=== PATIENT | male | born 1980 | race African-American/Black ===

== ENCOUNTER 2017-08-10 18:52 | Emergency (ER) | payer OTHER, SELFPAY ==
[2017-08-10] MEDS ORDERED: Sodium Chloride 0.9% 1,000 ML IV ONE (19:16)
[2017-08-10] MEDS ORDERED: Ondansetron 4 MG/2 ML SDV IVPUSH ONE (19:16)
[2017-08-10] MEDS ORDERED: Sodium Chloride 0.9% 10 ML Syringe FLUSH PRN (19:16)
[2017-08-10] MEDS ORDERED: Morphine 2 MG/ML Syringe IVPUSH ONE (19:16)
[2017-08-10] MEDS ORDERED: Sodium Chloride 0.9% 2.5 ML Syringe FLUSH PRN (19:16)
[2017-08-10] MEDS ORDERED: Pantoprazole 40 MG Vial IVPUSH ONE (19:16)
--- NOTE | 2017-08-10 19:22 | EDM.PDOC ---
ED HPI GENERAL MEDICAL PROBLEM - General Chief Complaint: Abdominal Pain Stated Complaint: PT HAS STOMACH PAINS Time Seen by Provider: 08/10/17 19:08 - History of Present Illness INITIAL COMMENTS - FREE TEXT/NARRATIVE: HISTORY AND PHYSICAL: History of present illness: The patient is a 37 y/o male who has no significant GI history other than the constipation, for which he has a bowel movement once a week and is normal for him, and presents with complaints of mid abdominal pain and vomiting for the last 3 days. He denies any contacts and has had no fever or upper respiratory symptoms chest pain or shortness of breath. He has no urinary complaints no complaints no flank pain. He says that the pain is at the middle of his abdomen as well as his epigastric area and he has not kept anything down by mouth more than a few sips over the last 3 days. The patient describes the pain as " feeling like a piece of my bowel is moving wrong or twisting". He has tried over -the-counter Pepto-Bismol and [place] without. He has no history of food intolerance but does have a history of lactose intolerance so he avoids those types of foods. He admits he drinks a lot of caffeinated products and doesn't hydrate November. Review of systems: As per history of present illness and below otherwise all systems reviewed and negative. Past medical history: As per history of present illness and as reviewed below otherwise noncontributory. Surgical history: As per history of present illness and as reviewed below otherwise noncontributory. Social history: No reported history of drug or alcohol abuse. Family history: As per history of present illness and as reviewed below otherwise noncontributory. Physical exam: Gen.: Well-developed overweight male who is nontoxic and vital signs of an reviewed by me. He is nontoxic appearing HEENT: Atraumatic, normocephalic, pupils reactive, negative for conjunctival pallor or scleral icterus, mucous membranes tacky, throat clear, neck supple, nontender, trachea midline. Lungs: Clear to auscultation, breath sounds equal bilaterally, chest nontender. Heart: S1S2, regular rate and rhythm no overt murmurs Abdomen: Soft, nondistended, hypoactive bowel sounds. There is tympany on percussion in the upper abdomen and there is tenderness mid abdomen and epigastrium without rebound or guarding. The right lower and left lower quadrants are without tenderness. Negative for masses or hepatosplenomegaly. Pelvis: Stable nontender. Genitourinary: Deferred. Rectal: Deferred. Extremities: Atraumatic, negative for cords or calf pain. Neurovascular unremarkable. Neuro: Awake, alert, oriented. Cranial nerves II through XII unremarkable. Cerebellum unremarkable. Motor and sensory unremarkable throughout. Exam nonfocal. Diagnostics: CBC CMP amylase lipase UA CT scan of the abdomen and pelvis Therapeutics: IV fluids and Protonix Zofran and morphine Dilaudid GI cocktail 2134: Case was discussed with our surgeon on-call who wants to see this patient tomorrow morning in his clinic as he wants to organize next dated endoscopy and colonoscopy. I talked to the patient and at bedside about all testing results. He informs me that he drinks a lot of Mountain Dew and sweet tea which I told him to reduce significantly. I've also given him dietary restrictions and will give him Prevacid to start at home tomorrow. He will be advised to call the clinic tomorrow at 8:[address] Street's Nurse when he would be coming and he will be seen anytime between 9 AM and 12 noon. I've advised him on reasons to return to the ER. I will also give him Zofran and tramadol for home. The patient has not had any vomiting while he's been here Impression: Abdominal pain with vomiting, likely peptic ulcer disease and chronic constipation Definitive disposition and diagnosis as appropriate pending reevaluation and review of above. abdomen Pain Score (Numeric/FACES): 10 - Related Data Allergies Allergy/AdvReac Type Severity Reaction Status Date / Time No Known Allergies Allergy Verified 08/10/17 18:56 Home Meds: Home Meds . [No Known Home Meds] 10/26/14 [History] Past Medical History - Past Health History Medical/Surgical History: Denies Medical/Surgical History - Past Surgical History HEENT Surgical History: Reports: Adenoidectomy, Myringotomy w Tube(s) Social & Family History - Family History Family Medical History: Noncontributory - Tobacco Use Smoking Status *Q: Current Every Day Smoker Years of Tobacco use: 20 Packs/Tins Daily: 1 - Recreational Drug Use Recreational Drug Use: No ED ROS GENERAL - Review of Systems Review Of Systems: ROS reveals no pertinent complaints other than HPI. ED EXAM, GENERAL - Physical Exam Exam: See Below (See dictation) Course - Vital Signs Last Recorded V/S: Last Vital Signs Temp 36.9 C 08/10/17 18:52 Pulse 75 08/10/17 18:52 Resp 18 08/10/17 18:52 BP 126/83 08/10/17 18:52 Pulse Ox 99 08/10/17 18:52 - Orders/Labs/Meds Orders: Active Orders 24 hr Category Date Time Status Abdomen Pelvis w Cont [CT] Stat Exams 08/10/17 19:15 Taken GI Cocktail with Reglan 25 ML PO x 1 Med 08/10/17 21:39 Ordered Alum Hydrox/Mag Hydrox/Simeth [Mag-Al Plus] 15 ml Metoclopramide [Reglan] 5 mg Lidocaine 2% [Xylocaine 2% Viscous] 5 ml PO ONETIME Sodium Chloride 0.9% [Saline Flush] Med 08/10/17 19:16 Active 10 ml FLUSH ASDIRECTED PRN Sodium Chloride 0.9% [Saline Flush] Med 08/10/17 19:16 Active 2.5 ml FLUSH ASDIRECTED PRN Saline Lock Insert [OM.PC] Stat Oth 08/10/17 19:15 Ordered Medication Orders Al Hydroxide/Mg Hydroxide 15 ml/ Metoclopramide HCl 5 mg/Lidocaine HCl 5 ml 0 ml PO ONETIME ONE Stop: 08/10/17 21:40 Sodium Chloride (Saline Flush) 10 ml FLUSH ASDIRECTED PRN PRN Reason: Keep Vein Open Sodium Chloride (Saline Flush) 2.5 ml FLUSH ASDIRECTED PRN PRN Reason: Keep Vein Open Labs: Laboratory Tests 08/10/17 08/10/17 08/10/17 Range/Units 19:20 19:20 19:30 WBC 9.32 (4.0-11.0) K/uL RBC 4.68 (4.50-5.90) M/uL Hgb 14.2 (13.0-17.0) g/dL Hct 42.4 (38.0-50.0) % MCV 90.6 (80.0-98.0) fL MCH 30.3 (27.0-32.0) pg MCHC 33.5 (31.0-37.0) g/dL RDW Std Deviation 41.8 (28.0-62.0) fl RDW Coeff of Jovi 13 (11.0-15.0) % Plt Count 380 (150-400) K/uL MPV 9.30 (7.40-12.00) fL Neut % (Auto) 61.8 (48.0-80.0) % Lymph % (Auto) 28.6 (16.0-40.0) % [place] % (Auto) 7.6 (0.0-15.0) % Eos % (Auto) 1.8 (0.0-7.0) % Baso % (Auto) 0.2 (0.0-1.5) % Neut # (Auto) 5.8 H (1.4-5.7) K/uL Lymph # (Auto) 2.7 H (0.6-2.4) K/uL [place] # (Auto) 0.7 (0.0-0.8) K/uL Eos # (Auto) 0.2 (0.0-0.7) K/uL Baso # (Auto) 0.0 (0.0-0.1) K/uL Nucleated RBC % 0.0 /100WBC Nucleated RBCs # 0 K/uL Sodium 141 (136-146) mmol/L Potassium 3.7 (3.5-5.1) mmol/L Chloride 103 (98-110) mmol/L Carbon Dioxide 27 (21-31) mmol/L BUN 17 (6.0-23.0) mg/dL Creatinine 1.4 (0.6-1.5) mg/dL Est Cr Clr Drug Dosing 84.81 mL/min Estimated GFR (MDRD) > 60.0 ml/min Glucose 101 (60-110) mg/dL Calcium 9.6 (8.8-10.8) mg/dL Total Bilirubin 0.5 (0.1-1.5) mg/dL AST 18 (5-40) IU/L ALT 19 (8-54) IU/L Alkaline Phosphatase 80 (40-150) Total Protein 8.1 H (6.0-8.0) g/dL Albumin 4.5 (3.5-5.0) g/dL Globulin 3.6 H (2.0-3.5) g/dL Albumin/Globulin Ratio 1.3 (1.3-2.8) Amylase 77 (10-90) U/L Lipase 17 (7-80) U/L Urine Color YELLOW Urine Appearance CLEAR Urine pH 7.5 (5.0-8.0) Ur Specific [place] 1.015 (1.001-1.035) Urine Protein TRACE (NEGATIVE) mg/dL Urine Glucose (UA) NEGATIVE (NEGATIVE) mg/dL Urine Ketones NEGATIVE (NEGATIVE) mg/dL Urine Occult Blood NEGATIVE (NEGATIVE) Urine Nitrite NEGATIVE (NEGATIVE) Urine Bilirubin SMALL H (NEGATIVE) Urine Ictotest NEGATIVE Urine Urobilinogen 4.0 H (<2.0) EU/dL Ur Leukocyte Esterase NEGATIVE (NEGATIVE) Urine RBC 0-2 (0-2/HPF) Urine WBC 1-3 (0-5/HPF) Ur Epithelial Cells FEW (NONE-FEW) Urine Bacteria FEW (NEGATIVE) Urine Mucus LIGHT (NONE-MOD) Meds: Medications Generic Name Dose Route Start Last Admin Trade Name Freq PRN Reason Stop Dose Admin Al Hydroxide/Mg Hydroxide 15 0 ml 08/10/17 21:39 ml/ Metoclopramide HCl 5 mg/ PO 08/10/17 21:40 Lidocaine HCl 5 ml ONETIME ONE Sodium Chloride 10 ml 08/10/17 19:16 Saline Flush FLUSH ASDIRECTED PRN Keep Vein Open Sodium Chloride 2.5 ml 08/10/17 19:16 Saline Flush FLUSH ASDIRECTED PRN Keep Vein Open Discontinued Medications Generic Name Dose Route Start Last Admin Trade Name Freq PRN Reason Stop Dose Admin Hydromorphone HCl 1 mg 08/10/17 21:31 Dilaudid IVPUSH 08/10/17 21:32 ONETIME ONE Sodium Chloride 1,000 mls @ 999 mls/hr 08/10/17 19:16 08/10/17 19:43 Normal Saline IV 08/10/17 20:16 999 mls/hr STAT ONE Administration Sodium Chloride Confirm 08/10/17 19:25 08/10/17 19:36 Normal Saline Administered 08/10/17 19:26 20 ml Dose Administration 20 mls @ as directed .ROUTE .STK-MED ONE Morphine Sulfate 4 mg 08/10/17 19:16 08/10/17 19:36 Morphine IVPUSH 08/10/17 19:17 4 mg ONETIME ONE Administration Ondansetron HCl 4 mg 08/10/17 19:16 08/10/17 19:31 Zofran IVPUSH 08/10/17 19:17 4 mg ONETIME ONE Administration Pantoprazole Sodium 80 mg 08/10/17 19:16 08/10/17 19:40 Protonix Iv IVPUSH 08/10/17 19:17 80 mg .BOLUS ONE Administration Departure - Departure Time of Disposition: 21:41 Disposition: Home, Self-Care 01 Condition: Good Clinical Impression: Abdominal pain Qualifiers: Abdominal location: epigastric Qualified Code(s): R10.13 - Epigastric pain Vomiting Qualifiers: Vomiting type: unspecified Vomiting Intractability: non-intractable Nausea presence: with nausea Qualified Code(s): R11.2 - Nausea with vomiting, unspecified - Discharge Information Referrals: PCP,None [Primary Care Provider] - Forms: ED Department Discharge Additional Instructions: The following information is given to patients seen in the emergency department who are being discharged to home. This information is to outline your options for follow-up care. We provide all patients seen in our emergency department with a follow-up referral. The need for follow-up, as well as the timing and circumstances, are variable depending upon the specifics of your emergency department visit. If you don't have a primary care physician on staff, we will provide you with a referral. We always advise you to contact your personal physician following an emergency department visit to inform them of the circumstance of the visit and for follow-up with them and/or the need for any referrals to a consulting specialist. The emergency department will also refer you to a specialist when appropriate. This referral assures that you have the opportunity for followup care with a specialist. All of these measure are taken in an effort to provide you with optimal care, which includes your followup. Under all circumstances we always encourage you to contact your private physician who remains a resource for coordinating your care. When calling for followup care, please make the office aware that this follow-up is from your recent emergency room visit. If for any reason you are refused follow-up, please contact the [facility] emergency department at and ask to speak to the emergency department charge nurse. [facility] Primary care- Internal Medicine and Family [address] [address] [facility] Specialty Care-General Surgery Professional Building [address] [place] [address] [address] [place] [address] Please call the clinic tomorrow and ask to speak to the nurse for Dr. Street at 8: 30 AM to inform her when you'll be coming to see the doctor. Dr. Street has told you that you can come any time between 9 AM and 12 noon for evaluation. Please use medications as needed and prescribed from [facility], Zofran and tramadol, and fill your prescription for Prevacid tomorrow. Please try to reduce caffeine intake and watch her diet as we discussed and push hydration. Return to ER as needed and as discussed. - My Orders Last 24 Hours: My Active Orders 08/10/17 19:15 Abdomen Pelvis w Cont [CT] Stat Saline Lock Insert [OM.PC] Stat 08/10/17 19:16 Sodium Chloride 0.9% [Saline Flush] 10 ml FLUSH ASDIRECTED PRN Sodium Chloride 0.9% [Saline Flush] 2.5 ml FLUSH ASDIRECTED PRN 08/10/17 21:39 GI Cocktail with Reglan 25 ML PO x 1 Alum Hydrox/Mag Hydrox/Simeth [Mag-Al Plus ] 15 ml Metoclopramide [Reglan] 5 mg Lidocaine 2% [Xylocaine 2% Viscous] 5 ml PO ONETIME - Assessment/Plan Last 24 Hours: My Active Orders 08/10/17 19:15 Abdomen Pelvis w Cont [CT] Stat Saline Lock Insert [OM.PC] Stat 08/10/17 19:16 Sodium Chloride 0.9% [Saline Flush] 10 ml FLUSH ASDIRECTED PRN Sodium Chloride 0.9% [Saline Flush] 2.5 ml FLUSH ASDIRECTED PRN 08/10/17 21:39 GI Cocktail with Reglan 25 ML PO x 1 Alum Hydrox/Mag Hydrox/Simeth [Mag-Al Plus ] 15 ml Metoclopramide [Reglan] 5 mg Lidocaine 2% [Xylocaine 2% Viscous] 5 ml PO ONETIME
[2017-08-10] MEDS ORDERED: Sodium Chloride 0.9% 20 ML ONE (19:25)
[2017-08-10 19:57] LABS: CHLORIDE,CL 103 mmol/L (98-110); SODIUM,NA 141 mmol/L (136-146)
[2017-08-10] MEDS ORDERED: HYDROmorphone 2 MG/ML Syringe IVPUSH ONE (21:31)
[2017-08-10] MEDS ORDERED: Alum Hydrox/Mag Hydrox/Simeth 15 ML, Metoclopramide 5 MG, Lidocaine 2% 5 ML PO ONE ×3 (21:39)
[2017-08-10 21:46] VITALS: BP 94/46
[2017-08-10] MEDS ORDERED: Iopamidol 755 MG/ML 500 ML Multipack Bottle IVPUSH STA (23:09)
--- NOTE | 2017-08-11 14:10 | CT ---
EXAM DATE: 08/10/17 PATIENT'S AGE: 37 Patient: KALEY YLNCH Facility: [place], [place] Site . Site : 1980 Study: CT Abdomen/Pelvis [id number]/14/2017 8:57:19 PM Ordering Physician: Nemo Tenorio Final Report: INDICATION: Mid abdominal pain and vomiting x3 days TECHNIQUE: CT abdomen and pelvis acquired with IV contrast. 100 cc Isovue 370. COMPARISON: None FINDINGS: Lower chest: Unremarkable. Liver: Unremarkable. Spleen: Unremarkable. Pancreas: Unremarkable. Gallbladder and bile ducts: Unremarkable. Kidneys: 1.8 centimeter cyst mid zone right kidney. Adrenal glands: Unremarkable. GI tract: Thickening of the duodenum bulb and 2nd portion of the duodenum. Diffuse colonic fecal retention. Appendix is normal. Vascular structures: Unremarkable. Lymph nodes: Unremarkable. Miscellaneous: Unremarkable. No free air or significant free fluid. Pelvic Organs: Unremarkable. Bones: Unremarkable for age. IMPRESSION: Thickening of the duodenal bulb and 2nd portion the duodenum. Correlate with peptic ulcer disease clinically. Correlation with abnormal amylase/lipase to exclude pancreatitis involving the pancreatic head as a cause of adjacent bowel thickening may be helpful. Diffuse colonic fecal retention. Dictated by Jf Louis MD @ 08/10/2017 9:25:27 PM Dictated by: Jf Louis MD @ 08/10/2017 21:25:43 (Electronic Signature) Report Signed by Proxy. [facility]
== END 2017-08-10 22:20 | disposition home or self-care (01) ==
LOC: MW.ED 18:52
DX: K59.09 Other constipation (principal); F17.210 Nicotine dependence, cigarettes, uncomplicated
CPT/HCPCS: 36415; 74177; 80053; 81001; 82150; 83690; 85025; 96361; 96374; 96375; 99284; A9270; C9113; J1170; J2270; J2405; J7040; 99285

== ENCOUNTER 2017-09-02 12:01 | Day surgery (SDC) | payer OTHER, SELFPAY ==
[~2017-09-02 12:01] MED LIST: Lactated Ringers 1,000 ML IV SCH; Lidocaine 2% 5 ML SDV ONE; Propofol 200 MG/20 ML SDV ONE; fentaNYL 100 MCG/2 ML SDV ONE
--- NOTE | 2017-09-02 13:03 | PCM.PREANE ---
Preanesthetic Assessment - Anesthesia/Transfusion/Family Hx Anesthesia History: Prior Anesthesia Without Reaction Family History of Anesthesia Reaction: No Transfusion History: No Prior Transfusion(s) - Review of Systems General: No Symptoms Pulmonary: No Symptoms Cardiovascular: No Symptoms Neurological: No Symptoms Other: Reports: None - Physical Assessment NPO Status Date: 09/01/17 O2 Sat by Pulse Oximetry: 97 Respiratory Rate: 16 Vital Signs: Last Vital Signs Temp 36.0 C 09/02/17 12:36 Pulse 65 09/02/17 12:36 Resp 16 09/02/17 12:36 BP 116/66 09/02/17 12:36 Pulse Ox 97 09/02/17 12:36 Height: 1.91 m Weight: 118.841 kg ASA Class: 2 Mental Status: Alert & Oriented x3 Airway Class: Mallampati = 1 Dentition: Reports: [place](s) ROM/Head Extension: Full Lungs: Clear to Auscultation, Normal Respiratory Effort Cardiovascular: Regular Rate, Regular Rhythm - Allergies Allergies/Adverse Reactions: Allergies Allergy/AdvReac Type Severity Reaction Status Date / Time No Known Allergies Allergy Verified 08/10/17 18:56 - Anesthesia Plan Pre-Op Medication Ordered: None - Acknowledgements Anesthesia Type Planned: MAC Pt an Appropriate Candidate for the Planned Anesthesia: Yes Alternatives and Risks of Anesthesia Discussed w Pt/Guardian: Yes Pt/Guardian Understands and Agrees with Anesthesia Plan: Yes PreAnesthesia Questionnaire - Past Health History Medical/Surgical History: Denies Medical/Surgical History Cardiovascular History: Reports: Heart Murmur Endocrine/Metabolic History: Reports: Obesity/BMI 30+ - Past Surgical History Head Surgeries/Procedures: Reports: None HEENT Surgical History: Reports: Myringotomy w Tube(s) - SUBSTANCE USE Smoking Status *Q: Current Every Day Smoker Tobacco Use Within Last Twelve Months: Cigarettes Recreational Drug Use History: No - HOME MEDS Home Medications: Home Meds Ondansetron HCl [Zofran] 1 tab PO ASDIRECTED PRN 08/30/17 [History] traMADol HCl [Tramadol HCl] 1 tab PO ASDIRECTED PRN 08/30/17 [History] - CURRENT (IN HOUSE) MEDS Current Meds: Current Medications Lactated Ringer's (Ringers, Lactated) 1,000 mls @ 125 mls/hr IV ASDIRECTED PANCHO Last Admin: 09/02/17 12:43 Dose: 125 mls/hr Discontinued Medications Fentanyl (Sublimaze) Confirm Administered Dose 100 mcg .ROUTE .STK-MED ONE Stop: 09/02/17 10:30 Lidocaine (Xylocaine-Mpf 2%) Confirm Administered Dose 5 ml .ROUTE .STK-MED ONE Stop: 09/02/17 10:31 Propofol (Diprivan 20 Ml) Confirm Administered Dose 400 mg .ROUTE .STK-MED ONE Stop: 09/02/17 10:30
--- NOTE | 2017-09-02 13:47 | PCM.OPNOTE ---
- General Post-Op/Procedure Note Date of Surgery/Procedure: 09/02/17 Operative Procedure(s): egd w bx Findings: see dict [id number] Pre Op Diagnosis: hematemisis and abd pain Post-Op Diagnosis: esophageal ulcer Anesthesia Technique: Moderate Sedation Primary Surgeon: Hardeep Street Pathology: sent Complications: None Condition: Good
--- NOTE | 2017-09-02 14:08 | PCM.POSTAN ---
POST ANESTHESIA ASSESSMENT - MENTAL STATUS Mental Status: Alert, Oriented - RESPIRATORY Respiratory Status: Respiratory Rate WNL, Airway Patent, O2 Saturation Stable - CARDIOVASCULAR CV Status: Pulse Rate WNL, Blood Pressure Stable - GASTROINTESTINAL GI Status: No Symptoms - POST OP HYDRATION Hydration Status: Adequate & Stable
--- NOTE | 2017-09-02 14:08 | PCM48HPAN ---
Post Anesthesia Note - EVALUATION WITHIN 48HRS OF ANESTHETIC Vital Signs in Normal Range: Yes Patient Participated in Evaluation: Yes Respiratory Function Stable: Yes Airway Patent: Yes Cardiovascular Function Stable: Yes Hydration Status Stable: Yes Pain Control Satisfactory: Yes Nausea and Vomiting Control Satisfactory: Yes Mental Status Recovered: Yes
--- NOTE | 2017-09-02 14:37 | OR ---
SURGEON: Hardeep Street MD DATE OF PROCEDURE: 09/02/2017 PREOPERATIVE DIAGNOSIS: Hematemesis and abdominal pain. POSTOPERATIVE DIAGNOSIS: Esophageal ulcer. PROCEDURE PERFORMED: Esophagogastroduodenoscopy with biopsy. FINDINGS: The patient is easily sedated with [employer] and Diprivan. The patient is soundly snoring. Oropharynx and proximal esophagus are free of disease. No stricture or inflammation. Distal esophagus showing a flame-like salmon color change consistent with severe acid reflux and in one area with an area suggestive of healed ulcer or healing ulcer. There is no randal blood observed. Stomach rugae is normal in appearance. There is no blood, bile, ulcer, or fluid observed. Antrum was a little bit inflamed. Duodenum was grossly normal. Retroflexed look at the fundus of stomach, there was no hiatal hernia. Biopsy done at antrum, body, GE junction at 40, and sucked out the air while scope pulling out. PROCEDURE IN DETAIL: The patient was taken to the endoscopy room, and with the [employer]OM[employer]CTOR, Diprivan was administered. A well-lubricated EGD scope was gently inserted through the oropharynx, down the esophagus, passing through the gastroesophageal junction, into the stomach. The mucosa was examined upon the passage. Any etiology will be noted. Once in the stomach, we continued to advance to the distal antrum, passed through the pylorus into the second portion of the duodenum. Again, the mucosa was examined for any abnormality and etiology. The scope was then retrieved back to the stomach and then retroflexed to look at the fundus of the stomach. If a biopsy was indicated, we will biopsy the antrum, body, and gastroesophageal junction. The air will be sucked out while the scope is retrieved to reduce the patient's discomfort. The patient tolerated the procedure well. There were no intraoperative complications. Dr. Street was present through the whole procedure. Prior to surgery, a time-out had been called, the patient identified, procedure identified and antibiotic administered. ROSY / TERI /[id number]
[2017-09-02 15:28] VITALS: BP 119/78
== END 2017-09-02 14:15 | disposition home or self-care (01) ==
LOC: MW.SDS 12:01
PROVIDERS: ATTEND Surgery
DX: K29.50 Unspecified chronic gastritis without bleeding (principal); K20.9 Esophagitis, unspecified; F17.210 Nicotine dependence, cigarettes, uncomplicated
CPT/HCPCS: 43239; J3010; J7120; 00740; 88305; 88312; J2704

== ENCOUNTER 2018-02-26 20:52 | Emergency (ER) | payer OTHER ==
[2018-02-26] MEDS ORDERED: Famotidine 20 MG/2 ML SDV IVPUSH ONE (21:32)
[2018-02-26] MEDS ORDERED: Sodium Chloride 0.9% 1,000 ML IV ONE (21:32)
--- NOTE | 2018-02-26 22:02 | EDM.PDOC ---
ED HPI GENERAL MEDICAL PROBLEM - General Chief Complaint: General Stated Complaint: UNABLE TO BALANCE AND VOMITTING Time Seen by Provider: 02/26/18 22:01 Source of Information: Reports: Patient History Limitations: Reports: No Limitations - History of Present Illness INITIAL COMMENTS - FREE TEXT/NARRATIVE: HISTORY AND PHYSICAL: History of present illness: 37-year-old male presenting emergency department with chief complaint of upper epigastric plane starting last evening. Patient states that he was drinking heavily last evening and began to have epigastric pain. He denies any nausea or vomiting Arey denies any vomiting of red load. States he does have a history of gastric ulcers. He did have a scope done by Dr. Perez in August. Denies any right lower quadrant pain or right upper or right lower quadrant pain. Denies any bloody stool or dark tarry stools. Patient is a smoker. Currently denies any chest pain, palpitations, shortness breath, syncopal episodes, focal neurologic deficits. Review of systems: As per history of present illness and below otherwise all systems reviewed and negative. Past medical history: As per history of present illness and as reviewed below otherwise noncontributory. Surgical history: As per history of present illness and as reviewed below otherwise noncontributory. Social history: No reported history of drug or alcohol abuse. Family history: As per history of present illness and as reviewed below otherwise noncontributory. Physical exam: HEENT: Atraumatic, normocephalic, pupils reactive, negative for conjunctival pallor or scleral icterus, mucous membranes moist, throat clear, neck supple, nontender, trachea midline. Lungs: Clear to auscultation, breath sounds equal bilaterally, chest nontender. Heart: S1S2, regular, negative for clicks, rubs, or JVD. Abdomen: Soft, nondistended, epigastric tenderness on deep palpation. Negative for masses or hepatosplenomegaly. Negative for costovertebral tenderness. Pelvis: Stable nontender. Genitourinary: Deferred. Rectal: Deferred. Extremities: Atraumatic, negative for cords or calf pain. Neurovascular unremarkable. Neuro: Awake, alert, oriented. Cranial nerves II through XII unremarkable. Cerebellum unremarkable. Motor and sensory unremarkable throughout. Exam nonfocal. Diagnostics: CBC, CMP, amylase, lipase, H. pylori, CT abdomen and pelvis. Therapeutics: 1 L normal saline, famotidine 20 mg IV 1, GI cocktail 1 Impression: H. pylori gastritis Plan: CBC, CMP, amylase, lipase were all unremarkable. H. pylori was positive. He reports that he has not been treated for this in the past. CT the abdomen did show questionable wall thickening the rectum but patient has no symptoms of proctitis. There also was some mild wall thickening of the gastric antrum and duodenal bulb suggestive of inflammatory changes. There was an inadvertent finding of a small cyst within the right kidney. Patient was advised of these results and instructed to stop smoking as well as drinking as he has increased chance of having malignant type of changes occur. He needs to follow-up with his primary care physician as well as possibly repeat endoscopy. For his H. pylori gastritis we did prescribe any omeprazole 20 mg by mouth twice a day 14 days, clarithromycin 500 mg by mouth twice a day 14 days, Flagyl 500 mg by mouth twice a day 14 days. He is instructed to follow-up with his primary care provider and return to emergency department if he had any new or worsening symptoms. Abdominal Pain Score (Numeric/FACES): 10 - Related Data Allergies Allergy/AdvReac Type Severity Reaction Status Date / Time No Known Allergies Allergy Verified 08/10/17 18:56 Home Meds: Home Meds . [Unable to Verify Home Med List] 02/26/18 [History] Past Medical History - Past Health History Medical/Surgical History: Denies Medical/Surgical History Cardiovascular History: Reports: Heart Murmur Gastrointestinal History: Reports: Other (See Below) Other Gastrointestinal History: ulcer Endocrine/Metabolic History: Reports: Obesity/BMI 30+ - Infectious Disease History Infectious Disease History: Reports: Chicken Pox - Past Surgical History Head Surgeries/Procedures: Reports: None HEENT Surgical History: Reports: Myringotomy w Tube(s) GI Surgical History: Reports: EGD Social & Family History - Family History Family Medical History: Noncontributory - Tobacco Use Smoking Status *Q: Current Every Day Smoker Years of Tobacco use: 20 Packs/Tins Daily: 1 Used Tobacco, but Quit: No Month/Year Tobacco Last Used: t Second Hand Smoke Exposure: Yes - Caffeine Use Caffeine Use: Reports: Soda, Tea - Alcohol Use Days Per Week of Alcohol Use: 1 Number of Drinks Per Day: 1 Total Drinks Per Week: 1 Date of Last Drink: 02/25/18 - Recreational Drug Use Recreational Drug Use: No ED ROS GENERAL - Review of Systems Review Of Systems: See Below ED EXAM, GENERAL - Physical Exam Exam: See Below Course - Vital Signs Last Recorded V/S: Last Vital Signs Temp 97.6 F 02/26/18 21:32 Pulse 65 02/26/18 21:32 Resp 20 02/26/18 21:32 BP 136/85 02/26/18 21:32 Pulse Ox 98 02/26/18 21:32 - Orders/Labs/Meds Orders: Active Orders 24 hr Category Date Time Status Abdomen Pelvis w Cont [CT] Stat Exams 02/26/18 22:11 Taken Labs: Laboratory Tests 02/26/18 02/26/18 02/26/18 Range/Units 21:51 21:51 21:51 WBC 9.90 (4.0-11.0) K/uL RBC 4.80 (4.50-5.90) M/uL Hgb 14.3 (13.0-17.0) g/dL Hct 42.6 (38.0-50.0) % MCV 88.8 (80.0-98.0) fL MCH 29.8 (27.0-32.0) pg MCHC 33.6 (31.0-37.0) g/dL RDW Std Deviation 41.1 (28.0-62.0) fl RDW Coeff of Jovi 13 (11.0-15.0) % Plt Count 349 (150-400) K/uL MPV 9.50 (7.40-12.00) fL Neut % (Auto) 75.7 (48.0-80.0) % Lymph % (Auto) 16.6 (16.0-40.0) % Whiteside % (Auto) 7.1 (0.0-15.0) % Eos % (Auto) 0.5 (0.0-7.0) % Baso % (Auto) 0.1 (0.0-1.5) % Neut # (Auto) 7.5 H (1.4-5.7) K/uL Lymph # (Auto) 1.6 (0.6-2.4) K/uL Whiteside # (Auto) 0.7 (0.0-0.8) K/uL Eos # (Auto) 0.1 (0.0-0.7) K/uL Baso # (Auto) 0.0 (0.0-0.1) K/uL Nucleated RBC % 0.0 /100WBC Nucleated RBCs # 0 K/uL Sodium 137 (136-148) mmol/L Potassium 4.0 (3.5-5.1) mmol/L Chloride 101 (98-107) mmol/L Carbon Dioxide 26.7 (21.0-32.0) mmol/L BUN 17 (7.0-18.0) mg/dL Creatinine 1.4 H (0.8-1.3) mg/dL Est Cr Clr Drug Dosing 87.18 mL/min Estimated GFR (MDRD) > 60.0 ml/min Glucose 84 (74-106) mg/dL Calcium 9.2 (8.5-10.1) mg/dL Total Bilirubin 1.1 H (0.2-1.0) mg/dL AST 19 (15-37) IU/L ALT 28 (14-63) IU/L Alkaline Phosphatase 92 (46-116) U/L Total Protein 8.1 (6.4-8.2) g/dL Albumin 4.4 (3.4-5.0) g/dL Globulin 3.7 H (2.0-3.5) g/dL Albumin/Globulin Ratio 1.2 L (1.3-2.8) Amylase (25-115) U/L Lipase (73-393) U/L H. pylori IgG Antibody POSITIVE H (NEG) 02/26/18 Range/Units 21:51 WBC (4.0-11.0) K/uL RBC (4.50-5.90) M/uL Hgb (13.0-17.0) g/dL Hct (38.0-50.0) % MCV (80.0-98.0) fL MCH (27.0-32.0) pg MCHC (31.0-37.0) g/dL RDW Std Deviation (28.0-62.0) fl RDW Coeff of Jovi (11.0-15.0) % Plt Count (150-400) K/uL MPV (7.40-12.00) fL Neut % (Auto) (48.0-80.0) % Lymph % (Auto) (16.0-40.0) % Whiteside % (Auto) (0.0-15.0) % Eos % (Auto) (0.0-7.0) % Baso % (Auto) (0.0-1.5) % Neut # (Auto) (1.4-5.7) K/uL Lymph # (Auto) (0.6-2.4) K/uL Whiteside # (Auto) (0.0-0.8) K/uL Eos # (Auto) (0.0-0.7) K/uL Baso # (Auto) (0.0-0.1) K/uL Nucleated RBC % /100WBC Nucleated RBCs # K/uL Sodium (136-148) mmol/L Potassium (3.5-5.1) mmol/L Chloride (98-107) mmol/L Carbon Dioxide (21.0-32.0) mmol/L BUN (7.0-18.0) mg/dL Creatinine (0.8-1.3) mg/dL Est Cr Clr Drug Dosing mL/min Estimated GFR (MDRD) ml/min Glucose (74-106) mg/dL Calcium (8.5-10.1) mg/dL Total Bilirubin (0.2-1.0) mg/dL AST (15-37) IU/L ALT (14-63) IU/L Alkaline Phosphatase (46-116) U/L Total Protein (6.4-8.2) g/dL Albumin (3.4-5.0) g/dL Globulin (2.0-3.5) g/dL Albumin/Globulin Ratio (1.3-2.8) Amylase 61 (25-115) U/L Lipase 84 (73-393) U/L H. pylori IgG Antibody (NEG) Meds: Medications Discontinued Medications Generic Name Dose Route Start Last Admin Trade Name Freq PRN Reason Stop Dose Admin Al Hydroxide/Mg Hydroxide 15 0 ml 02/26/18 23:39 ml/ Metoclopramide HCl 5 mg/ PO 02/26/18 23:40 Lidocaine HCl 5 ml ONETIME ONE Famotidine 20 mg 02/26/18 21:32 02/26/18 21:57 Pepcid IVPUSH 02/26/18 21:33 20 mg ONETIME ONE Administration Sodium Chloride 1,000 mls @ 999 mls/hr 02/26/18 21:32 02/26/18 21:57 Normal Saline IV 02/26/18 22:32 999 mls/hr STAT ONE Administration Iopamidol 100 ml 02/26/18 22:54 02/26/18 22:56 Isovue Multipack-370 (76%) IVPUSH 02/26/18 22:55 100 ml ONETIME STA Administration Metoclopramide HCl 10 mg 02/26/18 22:21 02/26/18 22:34 Reglan IVPUSH 02/26/18 22:22 10 mg ONETIME ONE Administration Departure - Departure Time of Disposition: 00:11 Disposition: Home, Self-Care 01 Condition: Good Clinical Impression: Helicobacter pylori gastritis - Discharge Information Referrals: PCP,None [Primary Care Provider] - Forms: ED Department Discharge Additional Instructions: My general discharge The following information is given to patients seen in the emergency department who are being discharged to home. This information is to outline your options for follow-up care. We provide all patients seen in our emergency department with a follow-up referral. The need for follow-up, as well as the timing and circumstances, are variable depending upon the specifics of your emergency department visit. If you don't have a primary care physician on staff, we will provide you with a referral. We always advise you to contact your personal physician following an emergency department visit to inform them of the circumstance of the visit and for follow-up with them and/or the need for any referrals to a consulting specialist. The emergency department will also refer you to a specialist when appropriate. This referral assures that you have the opportunity for follow-up care with a specialist. All of these measure are taken in an effort to provide you with optimal care, which includes your follow-up. Under all circumstances we always encourage you to contact your private physician who remains a resource for coordinating your care. When calling for follow-up care, please make the office aware that this follow-up is from your recent emergency room visit. If for any reason you are refused follow-up, please contact the [facility] Emergency Department at and asked to speak to the emergency department charge nurse. [facility] [address] [place] [id number] [facility] [address] [place] [address] Take medications as prescribed. Follow-up with your primary care provider. Call one of the numbers above discussion appointment for early this next week. Make sure you mentioning are seen in the emergency department. Return returns permanently if you have any new or worsening symptoms. - My Orders Last 24 Hours: My Active Orders 02/26/18 22:11 Abdomen Pelvis w Cont [CT] Stat - Assessment/Plan Last 24 Hours: My Active Orders 02/26/18 22:11 Abdomen Pelvis w Cont [CT] Stat
[2018-02-26 22:19] LABS: CHLORIDE,CL 101 mmol/L (98-107); SODIUM,NA 137 mmol/L (136-148)
[2018-02-26] MEDS ORDERED: Metoclopramide 10 MG/2 ML SDV IVPUSH ONE (22:21)
[2018-02-26] MEDS ORDERED: Iopamidol 755 MG/ML 200 ML Multipack Bottle IVPUSH STA (22:54)
[2018-02-26] MEDS ORDERED: Alum Hydrox/Mag Hydrox/Simeth 15 ML, Metoclopramide 5 MG, Lidocaine 2% 5 ML PO ONE ×3 (23:39)
[2018-02-27 00:26] VITALS: BP 109/52
--- NOTE | 2018-02-28 10:27 | CT ---
EXAM DATE: 02/26/18 PATIENT'S AGE: 37 Patient: KALEY LYNCH Facility: [place], [place] Site . Site : 1980 Study: CT Abdomen/Pelvis WITH [id number]/2/2018 10:58:25 PM Ordering Physician: Gallo Murphy Final Report: INDICATION: Generalized abdominal pain, nausea, history of gastric ulcers. TECHNIQUE: 3 mm axial imaging has been performed through the abdomen and pelvis after IV contrast. Sagittal and coronal reconstructions have been obtained. FINDINGS: Lung bases are free of infiltrate. There is some gynecomastia bilaterally. The liver, gallbladder, spleen, pancreas, bilateral adrenal glands are within normal limits. The kidneys demonstrate symmetric enhancement bilaterally. There is a small cyst off the lower pole of the right kidney. No hydronephrosis is noted bilaterally. Retrocrural region and retroperitoneum demonstrate no lymphadenopathy. No evidence for bowel obstruction. There is some mild associated wall thickening of the gastric antrum and duodenum bulb region. There is some questionable wall thickening of the rectum. Fluid filled nondilated small bowel loops are noted. No free air is seen. No abscess is seen. IMPRESSION: 1. There is questionable wall thickening of the rectum raise a question of proctitis. 2. There appears to be some wall thickening of the gastric antrum and duodenal bulb region suggestive of that inflammatory change. 3. No evidence for bowel obstruction. No free air is seen. 4. Small cyst within the right kidney noted. No hydronephrosis is noted bilaterally. 5. No significant free fluid is seen. Dictated by Jostin Simpson MD @ 02/26/2018 11:30:22 PM Please note that all CT scans at this facility use dose modulation, iterative reconstruction, and/or weight-based dosing when appropriate to reduce radiation dose to as low as reasonably achievable. Dictated by: Jostin Simpson MD @ 02/26/2018 23:30:26 (Electronic Signature) Report Signed by Proxy. [facility]
== END 2018-02-27 00:22 | disposition home or self-care (01) ==
LOC: MW.ED 20:52
DX: K29.70 Gastritis, unspecified, without bleeding (principal); B96.81 Helicobacter pylori [H. pylori] as the cause of diseases classified elsewhere; F17.210 Nicotine dependence, cigarettes, uncomplicated
CPT/HCPCS: 36415; 74177; 80053; 82150; 83690; 85025; 86677; 96361; 96374; 96375; 99284; A9270; J2765; J7040; Q9967

== ENCOUNTER 2018-10-22 18:22 | Emergency (ER) | payer SELFPAY ==
--- NOTE | 2018-10-22 18:41 | EDM.PDOC ---
ED HPI GENERAL MEDICAL PROBLEM - General Chief Complaint: General Stated Complaint: PT CONGESTED Time Seen by Provider: 10/22/18 18:39 Source of Information: Reports: Patient History Limitations: Reports: No Limitations - History of Present Illness INITIAL COMMENTS - FREE TEXT/NARRATIVE: HISTORY AND PHYSICAL: History of present illness: Patient is a 38-year-old male here with complaint of cough 1 week. He states he is coughing up green phlegm, painful when he coughs and sometimes short of breath. He states he has had a couple episodes of vomiting when coughing. He denies fevers, chills, abdominal pain, diarrhea. He also states he has a lesion on his penis for 1 year that has gotten bigger. States it itches. He denies penile discharge or dysuria. He is and is sexually active but reports other sexual partners and requesting STD testing and treatment. Review of systems: As per history of present illness and below otherwise all systems reviewed and negative. Past medical history: As per history of present illness and as reviewed below otherwise noncontributory. Surgical history: As per history of present illness and as reviewed below otherwise noncontributory. Social history: No reported history of drug or alcohol abuse. Family history: As per history of present illness and as reviewed below otherwise noncontributory. Physical exam: General: Patient sitting comfortably in no acute distress and nontoxic appearing HEENT: Atraumatic, normocephalic, pupils reactive, negative for conjunctival pallor or scleral icterus, mucous membranes moist, throat clear, neck supple, nontender, trachea midline. No meningeal signs. Lungs: Clear to auscultation, breath sounds equal bilaterally, chest nontender. Heart: S1S2, regular, negative for clicks, rubs, or overt murmur. Abdomen: Soft, nondistended, nontender. Negative for masses or hepatosplenomegaly. Negative for costovertebral tenderness. Pelvis: Stable nontender. Genitourinary: There is a 0.5cm hyperkeratotic skin colored lesion on the superior shaft of the penis. Rectal: Deferred. Extremities: Atraumatic, negative for cords or calf pain. Neurovascular unremarkable. Neuro: Awake, alert, oriented. Cranial nerves II through XII unremarkable. Cerebellum unremarkable. Motor and sensory unremarkable throughout. Exam nonfocal. Notes: Advised patient to follow up with urology for further management of genital warts. Diagnostics: urine gonorrhea/chlamydia, CXR, influenza Therapeutics: 1g azithromycin PO Rocephin 250mg IM Prescriptions: Azithromycin Ventolin inhaler Impression: Acute bronchitis, Genital warts, STD exposure Plan: 1. Take medications as instructed 2. Follow up with primary care provider and urology as discussed. Please call numbers provided to schedule appointments 3. Return to ED as needed as discussed. Definitive disposition and diagnosis as appropriate pending reevaluation and review of above. chest Pain Score (Numeric/FACES): 7 - Related Data Allergies Allergy/AdvReac Type Severity Reaction Status Date / Time No Known Allergies Allergy Verified 08/07/18 08:24 Home Meds: Home Meds Albuterol [Ventolin HFA] 1 puff INH Q4H #1 inhaler 10/22/18 [Rx] Azithromycin [Zithromax] 250 mg PO ASDIRECTED #1 dosepk 10/22/18 [Rx] Past Medical History - Past Health History Medical/Surgical History: Denies Medical/Surgical History Cardiovascular History: Reports: Heart Murmur Gastrointestinal History: Reports: Other (See Below) Other Gastrointestinal History: ulcer Endocrine/Metabolic History: Reports: Obesity/BMI 30+ - Infectious Disease History Infectious Disease History: Reports: Chicken Pox - Past Surgical History Head Surgeries/Procedures: Reports: None HEENT Surgical History: Reports: Myringotomy w Tube(s) GI Surgical History: Reports: EGD Social & Family History - Family History Family Medical History: Noncontributory - Caffeine Use Caffeine Use: Reports: Soda, Tea ED ROS GENERAL - Review of Systems Review Of Systems: ROS reveals no pertinent complaints other than HPI. ED EXAM, GENERAL - Physical Exam Exam: See Below (See dictation) Course - Vital Signs Last Recorded V/S: Last Vital Signs Temp 97 F 10/22/18 18:31 Pulse 95 10/22/18 18:31 Resp 16 10/22/18 18:31 BP 136/88 10/22/18 18:31 Pulse Ox 96 10/22/18 18:31 - Orders/Labs/Meds Orders: Active Orders 24 hr Category Date Time Status CHLAMYDIA AND GONORRHEA BY [facility] Stat Lab 10/22/18 19:24 Received Meds: Medications Discontinued Medications Generic Name Dose Route Start Last Admin Trade Name Freq PRN Reason Stop Dose Admin Azithromycin 1,000 mg 10/22/18 19:01 10/22/18 19:22 Zithromax PO 10/22/18 19:02 1,000 mg NOW STA Administration Ceftriaxone Sodium 250 mg/ 1 mls @ 1 mls/sec 10/22/18 19:01 10/22/18 19:22 Lidocaine HCl IM 10/22/18 19:02 1 mls/sec ONETIME ONE Administration Departure - Departure Time of Disposition: 19:43 Disposition: Home, Self-Care 01 Condition: Good Clinical Impression: Genital warts, Possible exposure to STD, Acute bronchitis - Discharge Information Prescriptions: Albuterol [Ventolin HFA] 1 puff INH Q4H #1 inhaler Azithromycin [Zithromax] 250 mg PO ASDIRECTED #1 dosepk Referrals: PCP,None [Primary Care Provider] - Forms: ED Department Discharge Additional Instructions: The following information is given to patients seen in the emergency department who are being discharged to home. This information is to outline your options for follow-up care. We provide all patients seen in our emergency department with a follow-up referral. The need for follow-up, as well as the timing and circumstances, are variable depending upon the specifics of your emergency department visit. If you don't have a primary care physician on staff, we will provide you with a referral. We always advise you to contact your personal physician following an emergency department visit to inform them of the circumstance of the visit and for follow-up with them and/or the need for any referrals to a consulting specialist. The emergency department will also refer you to a specialist when appropriate. This referral assures that you have the opportunity for follow-up care with a specialist. All of these measure are taken in an effort to provide you with optimal care, which includes your follow-up. Under all circumstances we always encourage you to contact your private physician who remains a resource for coordinating your care. When calling for follow-up care, please make the office aware that this follow-up is from your recent emergency room visit. If for any reason you are refused follow-up, please contact the [facility] Emergency Department at and asked to speak to the emergency department charge nurse. [facility] Primary Care [address] [place] [id number] [facility] Specialty Care - Urology [facility] [place] [address] 1. Take medications as instructed 2. Follow up with primary care provider and urology as discussed. Please call numbers provided to schedule appointments 3. Return to ED as needed as discussed. - My Orders Last 24 Hours: My Active Orders 10/22/18 19:24 CHLAMYDIA AND GONORRHEA BY [facility] Stat - Assessment/Plan Last 24 Hours: My Active Orders 10/22/18 19:24 CHLAMYDIA AND GONORRHEA BY [facility] Stat
[2018-10-22] MEDS ORDERED: cefTRIAXone 250 MG in Lidocaine 1% 1 ML IM ONE (19:01)
[2018-10-22] MEDS ORDERED: Azithromycin 250 MG Tab PO STA (19:01)
--- NOTE | 2018-10-22 19:29 | CR ---
HISTORY: Pain and shortness of breath. COMPARISON: None available FINDINGS: A portable erect AP view of the chest was obtained at 1851 hours. The lungs are clear. No focal or diffuse infiltrates are present. The heart is normal in size. The mediastinum is normal in appearance. The osseous structures are normal in appearance for the patient`s age. IMPRESSION: Normal portable chest single view. Dictated by Richard Fraser MD @ Oct 22 2018 7:27PM Signed by Dr. Richard Fraser @ Oct 22 2018 7:28PM
[2018-10-22 20:04] VITALS: BP 132/93
== END 2018-10-22 20:04 | disposition home or self-care (01) ==
LOC: MW.ED 18:22
DX: J20.9 Acute bronchitis, unspecified (principal); B07.9 Viral wart, unspecified; Z20.2 Contact with and (suspected) exposure to infections with a predominantly sexual mode of transmission; E66.9 Obesity, unspecified
CPT/HCPCS: 71045; 87491; 87591; 87804; 96372; 99283; A9270; J0696; J2001; 99282

== ENCOUNTER 2019-09-23 15:01 | Emergency (ER) | payer SELFPAY ==
[2019-09-23 15:27] VITALS: BP 132/82; PULSE 85
[2019-09-23] MEDS ORDERED: Ketorolac 30 MG/ML SDV IM ONE (15:41)
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
== END 2019-09-23 16:48 | disposition swing bed (61) ==
LOC: MW.ED 15:01
DX: M54.2 Cervicalgia (principal); E66.9 Obesity, unspecified; F17.210 Nicotine dependence, cigarettes, uncomplicated; Z68.38 Body mass index [BMI] 38.0-38.9, adult; V86.59XA Driver of other special all-terrain or other off-road motor vehicle injured in nontraffic accident, initial encounter; Y92.410 Unspecified street and highway as the place of occurrence of the external cause
CPT/HCPCS: 71046; 72040; 96372; 99284; J1885

== ENCOUNTER 2019-12-07 03:04 | Emergency (ER) | payer MEDICAID, OTHER ==
--- NOTE | 2019-12-07 03:31 | EDM.PDOC ---
ED HPI GENERAL MEDICAL PROBLEM - General Chief Complaint: General Stated Complaint: RECENT ORAL SURGERY- CONTINUOUS BLEEDING Time Seen by Provider: 12/07/19 03:20 Source of Information: Reports: Patient, Family History Limitations: Reports: No Limitations - History of Present Illness INITIAL COMMENTS - FREE TEXT/NARRATIVE: 39-year-old male presents with oral bleeding. Patient had 5 teeth removed today from oral surgery. He went home and woke up tonight with blood in his mouth and feels like there was blood "all over." Teeth removed were teeth 1, 2 , 3, 5, 16. He denies any lightheadedness fevers or chills. No vomiting. He has not taken any of his medication given to him yet because he was told to start taking his medication tomorrow. No fever, chills, nausea, vomiting, chest pain, shortness of breath. dental Pain Score (Numeric/FACES): 6 abdomen Pain Score (Numeric/FACES): 8 - Related Data Allergies Allergy/AdvReac Type Severity Reaction Status Date / Time No Known Allergies Allergy Verified 12/07/19 03:22 Home Meds: Home Meds . [No Known Home Meds] 09/23/19 [History] Past Medical History - Past Health History Medical/Surgical History: Denies Medical/Surgical History HEENT History: Reports: None Cardiovascular History: Reports: Heart Murmur Gastrointestinal History: Reports: Other (See Below) Other Gastrointestinal History: ulcer Musculoskeletal History: Reports: Gout Endocrine/Metabolic History: Reports: Obesity/BMI 30+ - Infectious Disease History Infectious Disease History: Reports: Chicken Pox - Past Surgical History Head Surgeries/Procedures: Reports: None HEENT Surgical History: Reports: Myringotomy w Tube(s), Oral Surgery GI Surgical History: Reports: EGD Musculoskeletal Surgical History: Reports: None Social & Family History - Family History Family Medical History: Noncontributory - Tobacco Use Smoking Status *Q: Current Every Day Smoker Years of Tobacco use: 20 Packs/Tins Daily: 1 - Caffeine Use Caffeine Use: Reports: Soda - Recreational Drug Use Recreational Drug Use: No ED ROS GENERAL - Review of Systems Review Of Systems: Comprehensive ROS is negative, except as noted in HPI. ED EXAM, GENERAL - Physical Exam Exam: See Below Free Text/Narrative:: General: No acute distress. Comfortable. Heent: Examination revealed no pallor, no icterus, no lymphadenopathy. The patient has normal posterior pharynx, moist mucous membranes. There are sockets appreciated at teeth 1-3, 5 and 16. None of them are actively bleeding. All have clots in place. Neck: Supple. No JVD. No rigidity. Heart: Normal rate. Reg rhythm. Course - Vital Signs Text/Narrative:: No active bleeding here after an hour and some change. Patient was given instructions about it monitor the situation directly with direct visualization. Return precautions for return of bleeding. Last Recorded V/S: Last Vital Signs Temp 97 F 12/07/19 03:08 Pulse 78 12/07/19 04:19 Resp 18 12/07/19 04:19 BP 111/70 12/07/19 04:19 Pulse Ox 94 L 12/07/19 04:19 Departure - Departure Time of Disposition: 04:00 Disposition: Home, Self-Care 01 Condition: Good Clinical Impression: Surgical wound hemorrhage after dental procedure - Discharge Information Instructions: Tooth Pulling, Care After Referrals: Leandra Forrest [facility] [Primary Care Provider] - Forms: ED Department Discharge Additional Instructions: Watch for bleeding. You can use gauze to help stop any bleeding that you have. Return to emergency with any troublesome bleeding. The following information is given to patients seen in the emergency department who are being discharged to home. This information is to outline your options for follow-up care. We provide all patients seen in our emergency department with a follow-up referral. The need for follow-up, as well as the timing and circumstances, are variable depending upon the specifics of your emergency department visit. If you don't have a primary care physician on staff, we will provide you with a referral. We always advise you to contact your personal physician following an emergency department visit to inform them of the circumstance of the visit and for follow-up with them and/or the need for any referrals to a consulting specialist. The emergency department will also refer you to a specialist when appropriate. This referral assures that you have the opportunity for follow-up care with a specialist. All of these measure are taken in an effort to provide you with optimal care, which includes your follow-up. Under all circumstances we always encourage you to contact your private physician who remains a resource for coordinating your care. When calling for follow-up care, please make the office aware that this follow-up is from your recent emergency room visit. If for any reason you are refused follow-up, please contact the [facility] Emergency Department at and asked to speak to the emergency department charge nurse. Sepsis Event Note - Evaluation Sepsis Screening Result: No Definite Risk - Focused Exam Date Exam was Performed: 12/07/19 Time Exam was Performed: 22:59
[2019-12-07 04:19] VITALS: BP 111/70; PULSE 78
== END 2019-12-07 04:35 | disposition home or self-care (01) ==
LOC: MW.ED 03:04
DX: K91.840 Postprocedural hemorrhage of a digestive system organ or structure following a digestive system procedure (principal); F17.210 Nicotine dependence, cigarettes, uncomplicated; E66.9 Obesity, unspecified; Z68.37 Body mass index [BMI] 37.0-37.9, adult
CPT/HCPCS: 99283